=== PATIENT | female | born 1965 | race Caucasian/White ===

== ENCOUNTER 2024-04-09 08:46 | Day surgery (SDC) | payer BC ==
[2024-04-09] MEDS: Lactated Ringers 1,000 ML IV SCH (09:20)
[2024-04-09] MEDS ORDERED: Lidocaine 2% 5 ML SDV ONE (10:28)
[2024-04-09] MEDS ORDERED: propofoL 50 ML ONE (10:29)
[2024-04-09] MEDS ORDERED: Lactated Ringers 1,000 ML IV SCH (11:15)
== END 2024-04-09 11:40 | disposition home or self-care (01) ==
LOC: MW.SDS 08:46
PROVIDERS: ATTEND Surgery
DX: Z12.11 Encounter for screening for malignant neoplasm of colon (principal); I10 Essential (primary) hypertension; F41.9 Anxiety disorder, unspecified; E66.9 Obesity, unspecified; F17.210 Nicotine dependence, cigarettes, uncomplicated; Z80.0 Family history of malignant neoplasm of digestive organs; Z79.899 Other long term (current) drug therapy; Z98.890 Other specified postprocedural states; Z68.30 Body mass index [BMI] 30.0-30.9, adult
CPT/HCPCS: 45378; J2704; J7120; J3490